=== PATIENT | female | born 1980 | race Caucasian/White ===

== ENCOUNTER 2021-08-07 01:40 | Emergency (ER) | payer OTHER ==
[~2021-08-07] VITALS: Ht 170.2 cm; Wt 74.8 kg
[2021-08-07 03:03] LABS: BILIRUBIN NEGATIVE (NEGATIVE); BLOOD NEGATIVE Ery/uL (NEGATIVE); CLARITY CLEAR (CLEAR); COLOR YELLOW (YELLOW); GLUCOSE (U) NORMAL (NORMAL); LEUKOCYTES NEGATIVE Leu/uL (NEGATIVE); NITRITE NEGATIVE (NEGATIVE); PROTEIN NEGATIVE (NEGATIVE); SPECIFIC GRAVITY >=1.030 (1.001-1.030); UROBILINOGEN 0.2 mg/dL (0.2-1.0); pH 5.5 (5.0-9.0)
[2021-08-07 03:04] LABS: BARBITURATES NEGATIVE (NEGATIVE); ECSTASY (MDMA) NEGATIVE (NEGATIVE); MARIJUANA (THC) NEGATIVE (NEGATIVE); METHADONE NEGATIVE (NEGATIVE); OPIATES NEGATIVE (NEGATIVE)
[2021-08-07 03:05] LABS: AMPHETAMINES NEGATIVE (NEGATIVE); OXYCODONE NEGATIVE (NEGATIVE)
[2021-08-07 03:25] LABS: ALKALINE PHOSHATASE 118 U/L (46-116); ALT 35 U/L (14-59); AST 52 U/L (15-37); BILIRUBIN - TOTAL 0.4 mg/dL (0.2-1.0); BUN 19 mg/dL (7-18); BUN/CREAT RATIO (CALC) 32.8 RATIO; CHLORIDE 99 mmol/L (98-107); CO2 (BICARBONATE) 18 mmol/L (21-32); CPK 892 U/L (26-192); CREATININE 0.58 mg/dL (0.51-0.95); GLOBULIN (CALCULATION) 3.6 g/dL; GLUCOSE 75 mg/dL (74-106); POTASSIUM 3.5 mmol/L (3.5-5.1); TOTAL PROTEIN 7.6 g/dL (6.4-8.2)
[2021-08-07 03:26] LABS: ACETAMINOPHEN (TYLENOL) < 2.0 ug/mL (10.0-30.0)
[2021-08-07 03:35] LABS: BASOPHIL 0.2 % (0-2); EOSINOPHIL 0.1 % (0-5); HCT 42.8 % (37.0-47.0); HGB 14.6 g/dl (12.5-16.0); LYMPHOCYTE 7.6 % (15-48); MCH 31.4 pg (25.0-31.0); MCHC 34.1 g/dL (32.0-36.0); MONOCYTE 2.8 % (0-12); MPV 11.4 fL (6.0-9.5); NEUTROPHIL 88.1 % (41-80); NRBC 0; PLT 288 K/uL (150-400); RBC 4.65 M/uL (4.20-5.40); RDW 12.2 % (11.5-14.0)
[2021-08-07 07:49] LABS: LACTIC ACID 0.7 mmol/L (0.4-1.9)
[2021-08-07 08:53] LABS: INFLUENZA A NAA NEGATIVE (NEGATIVE)
[2021-08-07 09:34] LABS: CORONAVIRUS 2019 SARS-COV-2 POSITIVE (NEGATIVE)
[2021-08-07 10:39] LABS: CREATININE 0.52 mg/dL (0.51-0.95); MAGNESIUM 1.8 mg/dL (1.8-2.4); POTASSIUM 3.7 mmol/L (3.5-5.1)
[2021-08-07 19:05] LABS: BUN/CREAT RATIO (CALC) 17.4 RATIO; CREATININE 0.46 mg/dL (0.51-0.95)
== END 2021-08-07 20:07 | disposition home or self-care (01) ==
LOC: FER 01:40
PROVIDERS: Emergency Medicine; Emergency Medicine Emergency Medical Services
DX: T33.822A Superficial frostbite of left foot, initial encounter (principal); T33.821A Superficial frostbite of right foot, initial encounter; F15.10 Other stimulant abuse, uncomplicated; E86.0 Dehydration; M62.82 Rhabdomyolysis; U07.1 COVID-19; T39.091A Poisoning by salicylates, accidental (unintentional), initial encounter; R41.82 Altered mental status, unspecified; F17.210 Nicotine dependence, cigarettes, uncomplicated; X31.XXXA Exposure to excessive natural cold, initial encounter
CPT/HCPCS: 36415; 36600; 70450; 71045; 80048; 80053; 80305; 81003; 82550; 82803; 83605; 83735; 84484; 85025; 93005; G0480; J3480; J7030; J7070; U0002